=== PATIENT | female | born 1930 | race Native Hawaiian/Other Pacific Islander ===

== ENCOUNTER 2017-05-01 09:10 | Outpatient (CLI) | payer OTHER ==
[2017-05-01 09:36] LABS: POTASSIUM 4.5 mmol/L (3.6-5.2)
[2017-05-01 09:55] LABS: PLATELET COUNT 244 K/uL (152-353)
== END 2017-05-01 10:10 | disposition home or self-care (01) ==
LOC: LABW 09:10
PROVIDERS: Internal Medicine Cardiovascular Disease
DX: Z79.899 Other long term (current) drug therapy (principal); Z51.81 Encounter for therapeutic drug level monitoring
CPT/HCPCS: 36415; 80048; 80061; 80076; 85027

== ENCOUNTER 2017-07-22 13:31 | Outpatient (CLI) | payer OTHER ==
[~2017-07-22 13:31] MED LIST: ACID REDUCER150 M1 PO; BENZONATATE200 MG PO; BUDESONID1 INH; CARV3.12 PO; DIOVAN HC1 PO; DUONEB 0.5-2.5MG/3ML INH; Flonase Nasal Inhaler NAS; GUAI600T70 PO; LORA10TA3 PO; OMEPRAZOLE20 M1 PO; SIMV20TA2 PO
[2017-07-22 13:57] LABS: PLATELET COUNT 248 K/uL (152-353)
[2017-07-22 14:14] LABS: POTASSIUM 4.3 mmol/L (3.6-5.2)
== END 2017-07-22 21:48 | disposition home or self-care (01) ==
LOC: LAB 13:31
PROVIDERS: Nurse Practitioner Family
DX: R06.02 Shortness of breath (principal); E78.4 Other hyperlipidemia; I10 Essential (primary) hypertension; J44.1 Chronic obstructive pulmonary disease with (acute) exacerbation; E55.9 Vitamin D deficiency, unspecified; R73.9 Hyperglycemia, unspecified
CPT/HCPCS: 80053; 80061; 82306; 83036; 83880; 84436; 84443; 85027

== ENCOUNTER 2018-04-17 02:27 | Inpatient (IN) | payer OTHER ==
[~2018-04-17] VITALS: Ht 152.4 cm; Wt 62.8 kg
[2018-04-17 02:30] VITALS: BP 132/60; TEMP 98.3
[2018-04-17 03:00] LABS: PLATELET COUNT 256 K/uL (152-353)
[2018-04-17 03:06] LABS: POTASSIUM 4.6 mmol/L (3.6-5.2); SODIUM 138 mmol/L (136-145)
[2018-04-17 04:24] VITALS: BP 95/38
[2018-04-17 05:02] VITALS: BP 67/43
[2018-04-17 06:04] VITALS: BP 95/36; TEMP 98.6; Ht 152.4 cm; Wt 62.8 kg
[2018-04-17 21:25] VITALS: BP 166/91; TEMP 98.5
[2018-04-18 06:00] LABS: PLATELET COUNT 218 K/uL (152-353)
[2018-04-18 06:46] LABS: POTASSIUM 4.6 mmol/L (3.6-5.2)
[2018-04-18 10:27] VITALS: BP 132/53; TEMP 98.1
[2018-04-18 20:00] VITALS: BP 147/84; TEMP 98.1
[2018-04-19] VITALS: BP 132/52; TEMP 98
[2018-04-19 04:00] VITALS: BP 165/56; TEMP 98.2
[2018-04-19 07:00] LABS: POTASSIUM 4.8 mmol/L (3.6-5.2)
[2018-04-19 08:50] LABS: PLATELET COUNT 219 K/uL (152-353)
[2018-04-19 20:00] VITALS: BP 166/66; TEMP 98.2
[2018-04-20 01:08] VITALS: BP 169/68; TEMP 98
[2018-04-20 03:48] VITALS: BP 153/63; TEMP 98.2
[2018-04-20 05:56] LABS: PLATELET COUNT 241 K/uL (152-353)
[2018-04-20 20:20] VITALS: BP 182/78; TEMP 97.7
[2018-04-20 23:40] VITALS: BP 130/65; TEMP 97.8
[2018-04-21 04:00] VITALS: BP 153/57; TEMP 97.7
[2018-04-21 06:23] LABS: POTASSIUM 4.9 mmol/L (3.6-5.2)
[2018-04-21 06:25] LABS: PLATELET COUNT 260 K/uL (152-353)
[2018-04-21 08:17] VITALS: BP 179/76; TEMP 97.5
[2018-04-21 12:17] VITALS: BP 169/65; TEMP 97.7
[2018-04-21] MEDS ORDERED: LEVAQUIN250 MG PO (12:39)
[2018-04-21] MEDS ORDERED: MEDROL DOSEPAK4 MG PO (12:39)
[2018-04-21] MEDS ORDERED: PANTOPRAZOLE 40MG TA PO (12:42)
[2018-04-21] MEDS ORDERED: IPRATROPIUM/ INH (12:51)
== END 2018-04-21 14:24 | disposition home or self-care (01) | DRG 194 ==
LOC: ED 02:27 → MED/SURG 03:30
PROVIDERS: ADMIT Internal Medicine
DX: J18.8 Other pneumonia, unspecified organism (principal); N17.8 Other acute kidney failure; K21.9 Gastro-esophageal reflux disease without esophagitis; E78.49 Other hyperlipidemia; I10 Essential (primary) hypertension; D72.828 Other elevated white blood cell count; R00.0 Tachycardia, unspecified
CPT/HCPCS: 36415; 80048; 80053; 82550; 83880; 84484; 85007; 85027; 87040; 87070; 87077; 87205; 87502; 93005; 94640; 94664; 94760; 96374; 96375; 99284; J1956; J0132; J0456; J0696; J2270; J2405; J2930; J3490

== ENCOUNTER 2018-05-20 09:01 | Outpatient (CLI) | payer OTHER ==
[~2018-05-20 09:01] MED LIST changes: +IPRATROPIUM/ INH; +LEVAQUIN250 MG PO; +MEDROL DOSEPAK4 MG PO; +PANTOPRAZOLE 40MG TA PO
[2018-05-20 09:26] LABS: POTASSIUM 4.9 mmol/L (3.6-5.2)
== END 2018-05-20 22:30 | disposition home or self-care (01) ==
LOC: LABW 09:01
PROVIDERS: Internal Medicine Cardiovascular Disease
DX: R06.02 Shortness of breath (principal); Z79.899 Other long term (current) drug therapy
CPT/HCPCS: 36415; 80048; 83880

== ENCOUNTER 2018-06-01 08:42 | Outpatient (CLI) | payer OTHER | END 2018-06-01 23:39 | disposition home or self-care (01) | LOC: RESP 08:42 | DX: R06.09 Other forms of dyspnea (principal) | CPT/HCPCS: 93306 ==

== ENCOUNTER 2019-02-08 07:30 | Outpatient (CLI) | payer OTHER | END 2019-02-08 19:59 | disposition home or self-care (01) | LOC: NM 07:30 | DX: Z01.810 Encounter for preprocedural cardiovascular examination (principal) | CPT/HCPCS: A9500; J2785 ==

== ENCOUNTER 2019-03-14 08:32 | Outpatient (CLI) | payer OTHER | END 2019-03-14 20:21 | disposition home or self-care (01) | LOC: CT 08:32 | DX: R91.1 Solitary pulmonary nodule (principal) ==

== ENCOUNTER 2020-04-06 08:29 | Outpatient (CLI) | payer OTHER | END 2020-04-06 19:27 | disposition home or self-care (01) | LOC: MAMMO 08:29 | PROVIDERS: ATTEND Nurse Practitioner Family | DX: Z12.31 Encounter for screening mammogram for malignant neoplasm of breast (principal) ==

== ENCOUNTER 2021-04-03 12:49 | Outpatient (CLI) | payer OTHER | END 2021-04-03 20:41 | disposition home or self-care (01) | LOC: RAD 12:49 | PROVIDERS: ATTEND Internal Medicine | DX: R05.9 Cough, unspecified (principal); R09.81 Nasal congestion | CPT/HCPCS: 87070; 87205 ==

== ENCOUNTER 2022-02-21 09:14 | Outpatient (CLI) | payer OTHER | END 2022-02-21 19:03 | disposition home or self-care (01) | LOC: CT 09:14 | PROVIDERS: ATTEND Urology | DX: C64.9 Malignant neoplasm of unspecified kidney, except renal pelvis (principal); N28.89 Other specified disorders of kidney and ureter; R91.8 Other nonspecific abnormal finding of lung field ==